=== PATIENT | male | born 1955 | race Caucasian/White ===

== ENCOUNTER 2024-12-04 10:29 | Emergency (ER) | payer MEDICARE, OTHER, SELFPAY ==
[2024-12-04 10:32] VITALS: BP 156/92
--- NOTE | 2024-12-04 11:36 | ED.GENMED ---
History of Present Illness
General
Chief Complaint: Abdominal Symptoms
Source: patient and spouse
Exam Limitations: none
Time Seen by Provider: 12/04/24 11:20
Nursing documentation reviewed up to this point in time: agreed with
History of Present Illness
History of Present Illness:
Patient presents to ED secondary to persistent upper abdominal pain associated with bloating sensation and decreased appetite over the past 3 days. Abdominal pain described as pressure, nonradiating, worse with meals, without alleviating symptoms.
Denies trauma. Denies diarrhea. Denies fever or chills. Denies recent change in medications or diet. In fact, patient only takes Flomax as an outpatient. Denies difficulty with urination. Denies back pain. Denies recent travel. Denies sick
contact. Denies previous history of similar symptoms. Patient reports having received normal colonoscopy 1 year ago. Patient denies drinking alcohol.
Review of Systems
Review of Systems
Allergies reviewed?: Yes
All Other Systems: ROS reviewed and negative except as documented in HPI and ROS
Constitutional: Reports no symptoms; Denies fever
EENT: Reports no symptoms
Respiratory: Reports no symptoms
Cardiac: Reports no symptoms
ABD/GI: Reports abdominal pain
: Reports no symptoms
Musculoskeletal: Reports no symptoms
Skin: Reports no symptoms
Neurological: Reports no symptoms
Phy Exam
Physical Exam
Physical Exam:
Physical Exam
General: no apparent distress, not acutely ill. afebrile
Head: nc/at. eomi
Neck: supple. normal range of motion.
Heart: s1/s2 regular rate and rhythm
Lungs: no acute respiratory distress. clear bilaterally
Abdomen: normal bowel sounds. mild RUQ tenderness to palpation
Neuro: alert and oriented x 3. no focal neurological deficits
Skin: no rash
Psychiatric: well kept. interactive and cooperative
Extremities: no edema. no calf tenderness.
Course
Orders/Labs/Results
Orders:
Orders
12/04/24 10:31
Electrocardiogram (*1) Urgent
Reason for Study: Chest Pain
EKG- Treatment ONCE
12/04/24 11:31
Pantoprazole [Protonix IV] 40 mg IV NOW STA
12/04/24 11:32
US Abdomen Complete/Upper Urgent
Comment:
Reason For Exam: epigastric pain
12/04/24 11:51
Complete Blood Count/With Diff Urgent
Comprehensive Metabolic Panel Urgent
Lipase Urgent
Urinalysis Reflex To Culture Urgent
Date Specimen was Collected: 12/04/24
Time Specimen was Collected: 11:41
Urine Microscopic Reflex Cult Urgent
Abnormal Lab Results
12/04/24
11:51
RBC 4.67 L 10^6/uL
(4.70-6.10)
Absolute Neuts (auto) 7.4 H 10^3/uL
(1.4-6.5)
Absolute Monos (auto) 0.9 H 10^3/uL
(0.1-0.6)
Lymphocytes % 16.2 L %
(20.5-51.1)
BUN 22 H mg/dl
(9-20)
Creatinine 1.5 H mg/dL
(0.7-1.3)
Glucose 106 H mg/dl
(70-99)
Lipase 301 H U/L
(23-300)
Urine Albumin (Reflex) 1+ A
(Neg - Trace)
12/04/24 11:51
12/04/24 11:51
Vital Signs
Initial and Last Documented VS:
Initial Vital Signs
Temp Pulse Resp BP Pulse Ox
98.3 F 83 20 156/92 99
12/04/24 10:32 12/04/24 10:32 12/04/24 10:32 12/04/24 10:32 12/04/24 10:32
Last Documented Vital Signs
Temp Pulse Resp BP Pulse Ox
98.0 F 67 18 149/87 98
12/04/24 13:39 12/04/24 13:39 12/04/24 13:39 12/04/24 13:39 12/04/24 13:39
MDM/Problems Addressed
MDM/Problems Addressed:
Abdominal ultrasound report reviewed and discussed with patient and spouse.
Blood work reveals mildly elevated lipase, which may be primary cause versus possible reactive elevation from nonspecific inflammatory response, i.e. viral illness. Otherwise, patient remains afebrile, hemodynamically stable, and nontoxic-appearing
during extended course of observation. Patient has been able to tolerate p.o. at home. Patient without any vomiting episodes in ED. As such, patient will be discharged home in stable condition with recommendation to bowel rest, dietary
modification, PPI, along with outpatient follow-up with his GI physician at [facility]. Advised to return to ED with worsening symptoms, i.e. worsening pain, fever/vomiting. Patient and spouse expressed understand at time of discharge.
*Critical Care Note
Total Time (30-74mins, 75-104mins- exclusive of procedures): Not Applicable
ED Attending Note
-
Portions of this chart may have been created with voice recognition software.� Occasional wrong word or��sound alike� substitutions may have occurred due to the inherent limitations of voice recognition software.
Discharge Plan
Departure
Patient Disposition: Home (Routine Discharge)
Date of Disposition: 12/04/24
Time of Disposition: 13:53
Patient with high blood pressure during this ER visit?: Yes
Condition: Fair
Discharge Problem:
Pancreatitis
Instructions: [facility] Diet, Pancreatitis - Discharge instructions
Referrals:
Yao Parekh, DO [Family Provider] -
Activity Restrictions/Additional Instructions:
As discussed, please follow-up with your primary care physician and/or GI physician for further evaluation treatment. Please consider return to ED with worsening symptoms, i.e. fever/worsening pain/vomiting. In addition, recommend taking PPI
medication as an outpatient, i.e. Nexium/Protonix/Prilosec/Pepcid, daily x 2 wks
Interventions
Interventions:
*Risk Screen - Suicide Last Done: 12/04/24 10:32
*General Assessment Last Done: 12/04/24 10:32
*Nursing Disposition Last Done: 12/04/24 14:02
[facility]Eaperfvfz[facility] Assessment Last Done: 12/04/24 11:59
Discharge Date and Time
Discharge Date/Time: 12/04/24 14:03
Print Language: INDONESIAN
[2024-12-04 11:52] VITALS: BMI 28.2
[2024-12-04] MEDS: PROTONIX IV 40 MG IV (11:54)
[2024-12-04 12:08] LABS: % Basophils 0.5 % (0-2); % Eosinophils 1.1 % (0-6); % Immature Granulocytes 0.2 % (0-0.5); % Lymphocytes 16.2 % (20.5-51.1); % Monocytes 8.6 % (1.7-9.3); % Neutrophils 73.4 % (42.2-75.2); Absolute Basophils 0.1 10^3/uL (0-0.2); Absolute Eosinophils 0.1 10^3/uL (0-0.7); Absolute Lymphocytes 1.6 10^3/uL (1.2-3.4); Absolute Monocytes 0.9 10^3/uL (0.1-0.6); Absolute Neutrophils 7.4 10^3/uL (1.4-6.5); Hematocrit 42.3 % (39.0-52.0); Hemoglobin 14.3 g/dL (13.0-18.0); Mean Corp Hgb Conc. 33.8 g/dL (33.0-37.0); Mean Corpuscular Hgb 30.6 pg (27.0-31.0); Mean Corpuscular Volume 90.6 fL (80.0-94.0); Mean Platelet Volume 9.7 fL (7.4-10.4); Nucleated Red Blood Cells % 0 % (-); Platelet Count 187 10^3/uL (130-400); Red Blood Cell Count 4.67 10^6/uL (4.70-6.10); Red Cell Dist. Width 13.2 % (11.5-14.5); White Blood Cell Count 10.1 10^3/uL (4.8-10.8)
[2024-12-04 12:26] LABS: ALT (SGPT) 24 U/L (0-50); AST (SGOT) 19 U/L (17-59); Albumin 4.1 g/dl (3.5-5.0); Alkaline Phosphatase 70 U/L (38-126); Blood Urea Nitrogen 22 mg/dl (9-20); Calcium 9.3 mg/dl (8.4-10.2); Carbon Dioxide 29 mmol/L (22-30); Chloride 102 mmol/L (98-107); Estimated Creatinine Clearance 46 ml/min; Glucose 106 mg/dl (70-99); Lipase 301 U/L (23-300); Potassium 4.3 mmol/L (3.5-5.1); Sodium 140 mmol/L (135-145); Total Bilirubin 0.8 mg/dl (0.2-1.3); Total Protein 6.8 g/dl (6.3-8.2); eGFR 50.71
[2024-12-04 13:01] LABS: Urine Albumin 1+ (Neg - Trace); Urine Bilirubin Negative (Negative); Urine Character Clear (Clear); Urine Color Yellow; Urine Glucose Negative (Negative); Urine Ketone Negative (Negative); Urine Leukocyte Negative (Negative); Urine Nitrite Negative (Negative); Urine Occult Blood Negative (Negative); Urine Specific Gravity 1.015 (<1.030); Urine Urobilinogen Negative (Neg - 1+)
[2024-12-04 13:39] VITALS: BP 149/87
[2024-12-04 14:20] LABS: Urine Mucus Few; Urine Squamous Cell 0-2 /LPF (Few); Urine Urothelial Cell 0-2 /LPF (FEW)
[2024-12-04 14:21] LABS: Urine Amorphous Seen; Urine Red Blood Cell 0-2 /HPF (0-2); Urine White Cell 0-2 /HPF (0-5)
== END 2024-12-04 14:03 | disposition home or self-care (01) ==
LOC: EMR 10:29
PROVIDERS: EMERGENCY PHYSICIAN Emergency Medicine; FAMILY PHYSICIAN Internal Medicine
DX: K85.90 Acute pancreatitis without necrosis or infection, unspecified (principal); R03.0 Elevated blood-pressure reading, without diagnosis of hypertension
CPT/HCPCS: 99285; 96374; 76700; 80053; 81003; 81015; 83690; 85025; 93005